=== PATIENT | male | born 1995 | race Caucasian/White ===

== ENCOUNTER 2019-06-20 08:38 | Emergency (ER) | payer SELFPAY ==
[~2019-06-20] VITALS: Ht 170.2 cm; Wt 81.6 kg
[2019-06-20 08:48] VITALS: BP_SYST 141
--- NOTE | 2019-06-20 08:55 | NUR ---
No beds available in ER. Patient agrees to be seen in triage room. Patient awaiting ER doctor.
--- NOTE | 2019-06-20 09:30 | NUR ---
ER Dr. Loza at bedside examining patient.
--- NOTE | 2019-06-20 09:52 | NUR ---
Patient given written and verbal discharge instructions and verbalizes understanding. ER MD discussed with patient the results and treatment provided. Patient in stable condition. ID arm band removed. Rx of prednisone, acyclovir given. Patient educated on pain management and to follow up with PMD. Pain Scale 0/10. Opportunity for questions provided and answered. Medication side effect fact sheet provided.
== END 2019-06-20 09:52 | disposition home or self-care (01) ==
LOC: SED 08:38
DX: G51.0 Bell's palsy (principal)
CPT/HCPCS: 99283